=== PATIENT | male | born 1995 | race Caucasian/White ===

== ENCOUNTER 2016-09-01 01:35 | Emergency (ER) | payer BC ==
[2016-09-01 01:57] VITALS: PULSE 83; TEMP 98.7; BMI 16.5
--- NOTE | 2016-09-01 03:31 | PDOC ---
History of Present Illness - General Chief Complaint: Seizure Stated Complaint: SEIZURE Time Seen by Provider: 09/01/16 02:09 - History of Present Illness Initial Comments: 09/01/16 03:24 Chief Complaint: syncope History of Present Illness: 21 yo M with no PMH BIBEMS s/p "seizure." Patient reports that he went home from work at [employer] today "around 11:30" and was "getting ready to go out" around midnight, and "the next thing I knew there were these people around me from the hospital." Per father, the mother found the patient on the floor of his bedroom around 1:45 am with his eyes open and "saliva from his mouth, and it looked like he was breathing really hard." When the parents woke the patient up, the patient appeared mildly disoriented. However, at this time father states that patient appears to be acting at baseline now. PAST MEDICAL HISTORY: Denies past medical history FAMILY HISTORY: Denies SOCIAL HISTORY: Rare alcohol use, occasional marijuana use. Denies tobacco, other illicit drug use. SURGICAL HISTORY: Denies ALLERGIES: No known drug allergies REVIEW OF SYSTEMS General/Constitutional: Denies fever or chills. HEENT: Denies change in vision. Denies ear pain or discharge. Denies sore throat. Cardiovascular: Denies chest pain or shortness of breath. Respiratory: Denies cough, wheezing, or hemoptysis. Gastrointestinal: Denies nausea, vomiting, diarrhea or constipation. Genitourinary: Denies dysuria, frequency, or change in urination. Musculoskeletal: Denies joint or muscle swelling or pain. Denies neck or back pain. Skin and breasts: Denies rash or easy bruising. Neurologic: LOC for unknown period of time, ranging from minutes to 1 hours. Denies headache at this time, vertigo, loss of consciousness, or loss of sensation. PHYSICAL EXAM General Appearance: Well-appearing, appropriately dressed. No apparent distress. HEENT: EOMI, PERRLA. Respiratory/Chest: Lungs CTAB. Cardiovascular: RRR. S1, S2. Gastrointestinal/Abdominal: Normal bowel sounds. Abdomen soft, non-distended. No tenderness or rebound tenderness. No organomegaly, pulsatile mass, guarding , hernia, hepatomegaly, splenomegaly. Lymphatic: No adenopathy, tenderness. Musculoskeletal/Extremities: Normal inspection. FROM of all extremities, normal capillary refill. Pelvis Stable. No CVA tenderness. No tenderness to extremities, pedal edema, swelling, erythema or deformity. Integumentary: Appropriate color, dry, warm. No cyanosis, erythema, jaundice or rash Neurologic: activity specialist II-XII intact. Fully oriented, alert. Appropriate mood/affect. Motor strength 5/5. No appreciable EOM palsy, facial droop or sensory deficit. A&Ox3, follow commands, respond appropriately CN2-12: conjugate gaze, pupil round, equal and reactive to light. Visual field full to confrontation. EOMI without nystagmus, pursuit is smooth without saccade. Facial sensation and muscle activation intact bilaterally. Hearing intact bilaterally. Palate elevate symmetrically. Shoulder shrug and neck turn full strength. Tongue protrude midline. Motor: UE and LE strength 5/5 throughout bilaterally. Muscle tone and bulk normal. Cerebellar: Rapid-alternating movement with regular rhythm without bradykinesia. Fppxkz-ab-evlp and vfhl-uz-auxw intact bilaterally without dysmetria or overshoot. Gait narrow based. No shuffling. Full hip flexion and knee flexion. Negative Romberg No involuntary movement noted. No pronator drift. No clonus. Past History - Past Medical History Allergies/Adverse Reactions: Allergies Allergy/AdvReac Type Severity Reaction Status Date / Time No Known Allergies Allergy Verified 09/01/16 01:54 Home Medications: Ambulatory Orders No Home Medications 0 dose .ROUTE UTDICT 10/17/12 Amox-Tr/K Cl [Augmentin 500Mg Tablet] 1 tab PO BID #20 tablet 09/01/16 - Psycho/Social/Smoking Cessation Hx Anxiety: No Suicidal Ideation: No Smoking Status: No Smoking History: Never smoked Have you smoked in the past 12 months: No Number of Cigarettes Smoked Daily: 5 Information on smoking cessation initiated: No Hx Alcohol Use: No Drug/Substance Use Hx: No Substance Use Type: Marijuana *Physical Exam - Vital Signs Last Vital Signs Temp Pulse Resp BP Pulse Ox 98.7 F 83 14 106/83 99 09/01/16 01:55 09/01/16 01:55 09/01/16 01:55 09/01/16 01:55 09/01/16 01:55 ED Treatment Course - LABORATORY CBC & Chemistry Diagram: 09/01/16 03:15 09/01/16 03:15 Medical Decision Making - Medical Decision Making 09/01/16 05:03 21 yo M with no PMH BIBEMS s/p seizure. -CBC, CMP, lactic acid -head ct -UA, Ucx -orthostatic BPs - supine 104/72, sitting 108/66, standing 113/81 lactic acid 2.7, wbc 16.3 with left shift 09/01/16 06:04 The ventricular system is midline and nondilated. The sulcal pattern is normal for the patient's age. There is no bleed, mass, extra-axial fluid collection or mass effect. No skull fracture or skull lesion is identified. Near-complete opacification of the left sphenoid sinus to indicate sinusitis. The other visualized paranasal sinuses and mastoid air cells are clear. IMPRESSION: No acute intracranial pathology. Probable left sphenoid sinusitis. Read by: Nolan Jarvis MD At this time patient has returned to baseline per father. Exam is unremarkable and patient has no focal neurological deficits. Will discharge to home with close neuro follow up. Advised patient and father of signs and symptoms of return to ER; patient and father verbalized understanding and agree to plan. 09/01/16 06:07 *DC/Admit/Observation/Transfer Diagnosis at time of Disposition: Seizure Sphenoid sinusitis Qualifiers: Chronicity: acute Recurrence: not specified as recurrent Qualified Code(s): J01.30 - Acute sphenoidal sinusitis, unspecified - Discharge Dispostion Disposition: HOME Condition at time of disposition: Stable - Prescriptions Prescriptions: Amox-Tr/K Cl [Augmentin 500Mg Tablet] 1 tab PO BID #20 tablet - Referrals Referrals: Ron Parra MD [Staff Physician] - Tc Nelson [Primary Care Provider] - - Patient Instructions Printed Discharge Instructions: DI for Sinusitis, DI for Seizure Disorder -- Adult Additional Instructions: Please follow up with the neurologist given to you as a referral for further evaluation. Return if any problems. TAke medication as directed.
[2016-09-01 03:33] LABS: BASOPHIL 0.3 % (0-2.0); EOSINOPHIL 0.7 % (0-4.5); MCH 30.4 pg (25.7-33.7); MEAN CELL VOLUME 92.1 fl (80-96); NEUTROPHILS 85.2 % (42.8-82.8); PLATELET COUNT 283 K/MM3 (134-434); RDW 13.3 % (11.9-15.9); WHITE BLOOD COUNT 16.3 K/mm3 (4.0-10.0)
[2016-09-01 03:48] VITALS: BP 104/72
[2016-09-01 04:01] LABS: ALBUMIN 4.1 g/dl (3.4-5.0); ALK PHOS 82 U/L (45-117); ANION GAP 9 (8-16); BILIRUBIN,TOTAL 0.5 mg/dL (0.2-1.0); CALCIUM 9.2 mg/dL (8.5-10.1); CO2 25 mmol/L (21-32); GLUCOSE,RANDOM 94 mg/dL (74-106); SGOT/AST 20 U/L (15-37); SGPT/ALT 21 U/L (12-78); TOT PROT 7.3 g/dl (6.4-8.2)
--- NOTE | 2016-09-01 04:07 | PDOC ---
*Physical Exam - Vital Signs Last Vital Signs Temp Pulse Resp BP Pulse Ox 98.7 F 83 14 104/72 99 09/01/16 01:55 09/01/16 01:55 09/01/16 01:55 09/01/16 03:47 09/01/16 01:55 <Ariel Mendez - Last Filed: 09/01/16 06:03> - Vital Signs Last Vital Signs Temp Pulse Resp BP Pulse Ox 98.7 F 83 14 104/72 99 09/01/16 01:55 09/01/16 01:55 09/01/16 01:55 09/01/16 03:47 09/01/16 01:55 <Cuca Turcios - Last Filed: 09/01/16 06:10> ED Treatment Course - LABORATORY CBC & Chemistry Diagram: 09/01/16 03:15 09/01/16 03:15 - ADDITIONAL ORDERS Additional order review: Laboratory Results 09/01/16 03:15 Sodium 139 Potassium 4.0 Chloride 105 Carbon Dioxide 25 Anion Gap 9 BUN 10 D Creatinine 1.0 Creat Clearance w eGFR > 60 Random Glucose 94 Calcium 9.2 Total Bilirubin 0.5 D AST 20 ALT 21 D Alkaline Phosphatase 82 D Total Protein 7.3 Albumin 4.1 09/01/16 03:15 RBC 4.98 MCV 92.1 MCHC 33.0 RDW 13.3 MPV 8.0 Neutrophils % 85.2 H D Lymphocytes % 7.3 L D Monocytes % 6.5 Eosinophils % 0.7 Basophils % 0.3 <Ariel Mendez - Last Filed: 09/01/16 06:03> - LABORATORY CBC & Chemistry Diagram: 09/01/16 03:15 09/01/16 03:15 - ADDITIONAL ORDERS Additional order review: Laboratory Results 09/01/16 09/01/16 09/01/16 04:25 04:00 03:15 Sodium Potassium Chloride Carbon Dioxide Anion Gap BUN Creatinine Creat Clearance w eGFR Random Glucose Lactic Acid 2.7 H* Calcium Total Bilirubin AST ALT Alkaline Phosphatase Total Protein Albumin Urine Color Straw Urine Appearance Clear Urine pH 5.0 D Urine Protein 1+ H Urine Glucose (UA) Negative Urine Ketones Trace H Urine Blood 1+ H Urine Nitrite Negative Urine Bilirubin Negative Urine Urobilinogen Negative Ur Leukocyte Esterase Negative Urine RBC <1 Urine WBC <1 Urine Bacteria Rare Urine Mucus Rare Opiates Screen Negative Methadone Screen Negative Barbiturate Screen Negative Phencyclidine Screen Negative Ur Amphetamines Screen Negative MDMA (Ecstasy) Screen Negative Benzodiazepines Screen Negative Cocaine Screen Negative U Marijuana (THC) Screen Positive 09/01/16 03:15 Sodium 139 Potassium 4.0 Chloride 105 Carbon Dioxide 25 Anion Gap 9 BUN 10 D Creatinine 1.0 Creat Clearance w eGFR > 60 Random Glucose 94 Lactic Acid Calcium 9.2 Total Bilirubin 0.5 D AST 20 ALT 21 D Alkaline Phosphatase 82 D Total Protein 7.3 Albumin 4.1 Urine Color Urine Appearance Urine pH Urine Protein Urine Glucose (UA) Urine Ketones Urine Blood Urine Nitrite Urine Bilirubin Urine Urobilinogen Ur Leukocyte Esterase Urine RBC Urine WBC Urine Bacteria Urine Mucus Opiates Screen Methadone Screen Barbiturate Screen Phencyclidine Screen Ur Amphetamines Screen MDMA (Ecstasy) Screen Benzodiazepines Screen Cocaine Screen U Marijuana (THC) Screen 09/01/16 03:15 RBC 4.98 MCV 92.1 MCHC 33.0 RDW 13.3 MPV 8.0 Neutrophils % 85.2 H D Lymphocytes % 7.3 L D Monocytes % 6.5 Eosinophils % 0.7 Basophils % 0.3 - RADIOLOGY Radiology Studies Ordered: Category Date Time Status HEAD CT WITHOUT CONTRAST [CT] Stat CT Scan 09/01/16 03:31 Ordered <Cuca Turcios - Last Filed: 09/01/16 06:10> Medical Decision Making - Medical Decision Making 09/01/16 04:07 agree with care from FREDRICK Turcios 09/01/16 06:07 Pt found to have sphenoid sinusitis on CT scan. Pt given referral for neurology follow up with further evaluation. <Ariel Mendez - Last Filed: 09/01/16 06:03> *DC/Admit/Observation/Transfer - Discharge Dispostion Admit: No <Ariel Mendez - Last Filed: 09/01/16 06:03> - Discharge Dispostion Admit: No <Cuca Turcios - Last Filed: 09/01/16 06:10> Diagnosis at time of Disposition: Seizure Sphenoid sinusitis Qualifiers: Chronicity: acute Recurrence: not specified as recurrent Qualified Code(s): J01.30 - Acute sphenoidal sinusitis, unspecified - Discharge Dispostion Disposition: HOME Condition at time of disposition: Stable - Prescriptions Prescriptions: Amox-Tr/K Cl [Augmentin 500Mg Tablet] 1 tab PO BID #20 tablet - Referrals Referrals: Tc Nelson [Primary Care Provider] - Ron Parra MD [Staff Physician] - - Patient Instructions Printed Discharge Instructions: DI for Seizure Disorder -- Adult, DI for Sinusitis Additional Instructions: Please follow up with the neurologist given to you as a referral for further evaluation. Return if any problems. TAke medication as directed.
[2016-09-01 04:11] LABS: URINE APPEARANCE CLEAR; URINE BILIRUBIN NEGATIVE (NEGATIVE); URINE BLOOD 1+ (NEGATIVE); URINE COLOR STRAW; URINE GLUCOSE (UA) NEGATIVE (NEGATIVE); URINE KETONE TRACE (NEGATIVE); URINE LEUK ESTERASE NEGATIVE (NEGATIVE); URINE NITRITE NEGATIVE (NEGATIVE); URINE UROBILINOGEN NEGATIVE mg/dL (0.2-1.0)
[2016-09-01 04:21] LABS: URINE PROTEIN 1+ (NEGATIVE)
[2016-09-01 04:23] LABS: URINE BACTERIA RARE /hpf (NONE SEEN); URINE MUCUS RARE; URINE RBC <1 /hpf (0-3); URINE WBC <1 /hpf (3-5)
[2016-09-01 04:56] LABS: URINE MARIJUANA THC POSITIVE ng/ml (CUTOFF=50)
[2016-09-01] MEDS ORDERED: AMOX TR/POT CLAV 500MG/125MG TABLETS (FP) PO ONE (06:04)
[2016-09-01] MEDS ORDERED: AMOX TR/POT CLAV 500MG/125MG TABLETS (FP) ONE (06:09)
--- NOTE | 2016-09-01 16:32 | EKG ---
Test Reason : Blood Pressure : / mmHG Vent. Rate : 075 BPM Atrial Rate : 075 BPM P-R Int : 144 ms QRS Dur : 090 ms QT Int : 352 ms P-R-T Axes : 063 087 066 degrees QTc Int : 393 ms NORMAL SINUS RHYTHM NORMAL ECG NO PREVIOUS ECGS AVAILABLE Confirmed by JAMIL JUAN MD ([id number]) on 09/01/2016 4:31:57 PM Referred By: Confirmed By:JMAIL JUAN MD
== END 2016-09-01 06:16 | disposition home or self-care (01) ==
LOC: JER 01:35
DX: R56.9 Unspecified convulsions (principal); J01.30 Acute sphenoidal sinusitis, unspecified
CPT/HCPCS: 36415; 70450-TC; 80053; 80307; 81003; 81015; 83605; 85025; 87086; 93005; 93010; 99282-25

== ENCOUNTER 2017-04-06 00:13 | Emergency (ER) | payer BC, OTHER ==
--- NOTE | 2017-04-06 01:38 | PDOC ---
History of Present Illness - General Stated Complaint: SEIZURE Time Seen by Provider: 04/06/17 00:41 - History of Present Illness Initial Comments: 04/06/17 01:28 "The patient is a 21 year old male presenting with his mother and father, with no PMH, who presents to the emergency department after a seizure that occured 1 hour prior to presentation. Pt has no recollection of the episode, but the mother reports that the patient was found shaking on his bed and had spit coming from his mouth. She witnessed tonic-clonic movements that lasted about 5 minutes. The patient had a post-ictal period lasting roughly 15 minutes before the patient returned to normal. Mother states that the pt was in bed at the time and did not hit his head. The patient denies any complaints currently. He does admit to smoking marijuana prior to onset of seizure. Also endorses poor sleep habits. Denies any significant ETOH use, denies other substances. This is the pt's second seizure. The patient first had a seizure on 08/2016. Pt was seen here and had a CT scan of the head that was normal. Pt has f/u'ed with neurology in the interim and was told he did not need additional testing or medication, as he has only had one seizure in his life. The patient denies chest pain, shortness of breath, headache and dizziness. Denies fever, chills, nausea, vomit, diarrhea and constipation. Allergies: None Past surgical history: None reported Social history: Marijuana use. Alcohol use (Weekends) " Past History - Past Medical History Allergies/Adverse Reactions: Allergies Allergy/AdvReac Type Severity Reaction Status Date / Time No Known Allergies Allergy Verified 09/01/16 01:54 Home Medications: Ambulatory Orders No Home Medications 0 dose .ROUTE UTDICT 10/17/12 Amox-Tr/K Cl [Augmentin 500Mg Tablet] 1 tab PO BID #20 tablet 09/01/16 Valproic Acid [Depakene -] 250 mg PO DAILY #7 capsule 04/06/17 - Suicide/Smoking/Psychosocial Hx Smoking Status: No Smoking History: Never smoked Have you smoked in the past 12 months: No Number of Cigarettes Smoked Daily: 5 Hx Alcohol Use: No Drug/Substance Use Hx: No Substance Use Type: Marijuana Review of Systems - Review of Systems Comments:: 04/06/17 01:31 "GENERAL/CONSTITUTIONAL: No fever or chills. No weakness. HEAD, EYES, EARS, NOSE AND THROAT: No change in vision. No ear pain or discharge. No sore throat. CARDIOVASCULAR: No chest pain or shortness of breath. RESPIRATORY: No cough, wheezing, or hemoptysis. GASTROINTESTINAL: No nausea, vomiting, diarrhea or constipation. GENITOURINARY: No dysuria, frequency, or change in urination. MUSCULOSKELETAL: No joint or muscle swelling or pain. No neck or back pain. SKIN: No rash NEUROLOGIC: (+) Seizure. No headache, vertigo, loss of consciousness, or change in strength/sensation. ENDOCRINE: No increased thirst. No abnormal weight change. HEMATOLOGIC/LYMPHATIC: No anemia, easy bleeding, or history of blood clots. ALLERGIC/IMMUNOLOGIC: No hives or skin allergy." *Physical Exam - Physical Exam Comments: 04/06/17 01:31 "GENERAL: Awake, alert, and fully oriented, in no acute distress HEAD: No signs of trauma EYES: PERRLA, EOMI, sclera anicteric, conjunctiva clear ENT: No tongue bites, Auricles normal inspection, hearing grossly normal, nares patent, oropharynx clear without exudates. Moist mucosa NECK: Nontender, no stepoffs, Normal ROM, supple, no lymphadenopathy, JVD, or masses LUNGS: Breath sounds equal, clear to auscultation bilaterally. No wheezes, and no crackles HEART: Regular rate and rhythm, normal S1 and S2, no murmurs, rubs or gallops ABDOMEN: Soft, nontender, normoactive bowel sounds. No guarding, no rebound. No masses EXTREMITIES: Normal range of motion, no edema. No clubbing or cyanosis. No cords, erythema, or tenderness NEUROLOGICAL: Cranial nerves II through XII intact. 5/5 strength and sensation in all extremities, Normal speech, normal gait, normal cerebellar function SKIN: Warm, Dry, normal turgor, no rashes or lesions noted." ED Treatment Course - LABORATORY CBC & Chemistry Diagram: 04/06/17 01:35 04/06/17 01:35 Medical Decision Making - Medical Decision Making 04/06/17 01:32 21 M with second seizure of life. Pt with no neuro deficits on exam. Had negative work up and imaging after first seizure last year. Pt with no signs of head injury today and non-focal exam, so will defer repeat head imaging. Will r/ o metabolic derangement as cause of seizure. Given that this is pt's second seizure, will start him on AED. - Labs - Valproate - F/u neurology 04/06/17 01:43 Pt signed out to oncoming attending at 2AM, pending labwork and re-evaluation. Case discussed in detail with oncoming Emergency Physician including history, physical exam and ancillary studies. Oncoming Emergency Physician has assumed care for the patient and will complete the evaluation and treatment. Patient is aware of the plan. *DC/Admit/Observation/Transfer Diagnosis at time of Disposition: Seizure - Prescriptions Prescriptions: Valproic Acid [Depakene -] 250 mg PO DAILY #7 capsule - Referrals Referrals: Tc Nelson [Primary Care Provider] - Ron Parra MD [Staff Physician] - - Patient Instructions Printed Discharge Instructions: DI for Seizure Disorder -- Adult Additional Instructions: Take the Valproate as prescribed to prevent seizures. You MUST follow up with a neurologist within 48 hours. Call the number provided to make an appointment. Do NOT drive or operate heavy machinery until you are cleared by a neurologist. If you experience additional seizures, headache, fevers, vomiting, weakness/ numbness, or any other concerning symptoms, return to the ER immediately. - Post Discharge Activity - Attestations Physician Attestion: 04/06/17 01:43 I, Dr. Rizwan Charles MD, attest that this document has been prepared under my direction and personally reviewed by me in its entirety. I further attest, that it accurately reflects all work, treatment, procedures and medical decision -making performed by me.
[2017-04-06 01:43] LABS: BASO % 0.3 % (0-2.0); EOS % 1.7 % (0-4.5); HEMATOCRIT 43.7 % (35.4-49); HEMOGLOBIN 14.8 GM/dL (11.7-16.9); MCH 31.2 pg (25.7-33.7); MCHC 33.9 g/dl (32.0-35.9); MEAN CELL VOLUME 92.1 fl (80-96); MEAN PLT VOLUME 7.7 fl (7.5-11.1); MONO % 7.1 % (3.8-10.2); NEUT % 83.9 % (42.8-82.8); PLATELET COUNT 291 K/MM3 (134-434); RBC 4.75 M/mm3 (4.00-5.60); RDW 13.2 % (11.9-15.9); WHITE BLOOD COUNT 16.4 K/mm3 (4.0-10.0)
[2017-04-06] MEDS ORDERED: VALPROATE SODIUM 250 MG/5 ML UNIT DOSE CUP PO SCH (01:45)
[2017-04-06 02:07] LABS: ALBUMIN 3.8 g/dl (3.4-5.0); ALK PHOS 72 U/L (45-117); ANION GAP 11 (8-16); BILIRUBIN,TOTAL 0.8 mg/dL (0.2-1.0); BLOOD UREA NITROGEN 15 mg/dL (7-18); CALCIUM 8.5 mg/dL (8.5-10.1); CHLORIDE 102 mmol/L (98-107); CO2 25 mmol/L (21-32); GLUCOSE,RANDOM 92 mg/dL (74-106); POTASSIUM 3.8 mmol/L (3.5-5.1); SGOT/AST 16 U/L (15-37); SGPT/ALT 15 U/L (12-78); SODIUM 138 mmol/L (136-145); TOT PROT 6.7 g/dl (6.4-8.2)
[2017-04-06 02:25] LABS: URINE APPEARANCE CLEAR; URINE BILIRUBIN NEGATIVE (NEGATIVE); URINE BLOOD NEGATIVE (NEGATIVE); URINE COLOR STRAW; URINE GLUCOSE (UA) NEGATIVE (NEGATIVE); URINE KETONE NEGATIVE (NEGATIVE); URINE LEUK ESTERASE NEGATIVE (NEGATIVE); URINE NITRITE NEGATIVE (NEGATIVE); URINE PROTEIN NEGATIVE (NEGATIVE); URINE UROBILINOGEN NEGATIVE mg/dL (0.2-1.0)
[2017-04-06 02:33] LABS: COCAINE, UR NEGATIVE ng/ml (CUTOFF=300); METHADONE, UR NEGATIVE ng/ml (CUTOFF=300); OPIATES, URI NEGATIVE ng/ml (CUTOFF=300); PHENCYCLIDINE,URINE NEGATIVE ng/ml (CUTOFF=25); URINE AMPHETAMINES NEGATIVE ng/ml (CUTOFF=500); URINE BARBITURATES NEGATIVE ng/ml (CUTOFF=200); URINE BENZODIAZEPINES NEGATIVE ng/ml (CUTOFF=200)
[2017-04-06 02:51] VITALS: BP 110/80; PULSE 75; TEMP 98.4; BMI 22.0
[2017-04-06] MEDS ORDERED: DIVALPROEX SODIUM 125 MG TABLET E.C. (FP) ONE (02:58)
--- NOTE | 2017-04-06 03:25 | PDOC ---
*Physical Exam - Vital Signs Last Vital Signs Temp Pulse Resp BP Pulse Ox 98.4 F 75 15 110/80 100 04/06/17 02:49 04/06/17 02:49 04/06/17 02:49 04/06/17 02:49 04/06/17 02:49 ED Treatment Course - LABORATORY CBC & Chemistry Diagram: 04/06/17 01:35 04/06/17 01:35 - ADDITIONAL ORDERS Additional order review: Laboratory Results 04/06/17 04/06/17 04/06/17 02:17 02:17 01:35 Sodium 138 Potassium 3.8 Chloride 102 Carbon Dioxide 25 Anion Gap 11 BUN 15 D Creatinine 1.0 Creat Clearance w eGFR > 60 Random Glucose 92 Calcium 8.5 Total Bilirubin 0.8 D AST 16 ALT 15 D Alkaline Phosphatase 72 Total Protein 6.7 Albumin 3.8 Urine Color Straw Urine Appearance Clear Urine pH 5.0 Ur Specific [place] 1.013 Urine Protein Negative Urine Glucose (UA) Negative Urine Ketones Negative Urine Blood Negative Urine Nitrite Negative Urine Bilirubin Negative Urine Urobilinogen Negative Ur Leukocyte Esterase Negative Opiates Screen Negative Methadone Screen Negative Barbiturate Screen Negative Phencyclidine Screen Negative Ur Amphetamines Screen Negative MDMA (Ecstasy) Screen Negative Benzodiazepines Screen Negative Cocaine Screen Negative U Marijuana (THC) Screen Positive 04/06/17 01:35 RBC 4.75 MCV 92.1 MCHC 33.9 RDW 13.2 MPV 7.7 Neutrophils % 83.9 H Lymphocytes % 7.0 L Monocytes % 7.1 Eosinophils % 1.7 D Basophils % 0.3 *DC/Admit/Observation/Transfer Diagnosis at time of Disposition: Seizure - Prescriptions Prescriptions: Valproic Acid [Depakene -] 250 mg PO DAILY #7 capsule - Referrals Referrals: Ron Parra MD [Staff Physician] - Tc Nelson [Primary Care Provider] - - Patient Instructions Printed Discharge Instructions: DI for Seizure Disorder -- Adult Additional Instructions: Take the Valproate as prescribed to prevent seizures. You MUST follow up with a neurologist within 48 hours. Call the number provided to make an appointment. Do NOT drive or operate heavy machinery until you are cleared by a neurologist. If you experience additional seizures, headache, fevers, vomiting, weakness/ numbness, or any other concerning symptoms, return to the ER immediately. - Post Discharge Activity Forms/Work/School Notes: Back to Work
--- NOTE | 2017-04-06 12:17 | EKG ---
Test Reason : Blood Pressure : / mmHG Vent. Rate : 075 BPM Atrial Rate : 075 BPM P-R Int : 144 ms QRS Dur : 090 ms QT Int : 356 ms P-R-T Axes : 064 085 074 degrees QTc Int : 397 ms NORMAL SINUS RHYTHM EARLY REPOLARIZATION NORMAL ECG WHEN COMPARED WITH ECG OF 01-SEP-2016 03:23, NO SIGNIFICANT CHANGE WAS FOUND Confirmed by JAMIL JUAN MD ([id number]) on 04/06/2017 12:17:44 PM Referred By: Confirmed By:JAMIL JUAN MD
== END 2017-04-06 03:27 | disposition home or self-care (01) ==
LOC: JER 00:13
DX: R56.9 Unspecified convulsions (principal)
CPT/HCPCS: 36415; 80053; 80307; 81003; 85025; 93005; 93010; 99281-25